=== PATIENT | female | born 1940 | race Caucasian/White ===

== ENCOUNTER 2017-10-17 20:48 | Emergency (ER) | payer OTHER ==
[2017-10-17] MEDS ORDERED: HYDROCODONE/APAP 5/325 MG TAB ONE (21:41)
--- NOTE | 2017-10-17 21:44 | ER ---
Nurse's Notes [facility] Name: Mary Hester Age: 77 yrs Sex: Female : 1940 Arrival Date: 10/17/2017 Time: 20:51 Bed 16 Private MD: Melissa Valdez F Diagnosis: Fractures distal left radius and ulna styloid Presentation: 10/17 20:57 Presenting complaint: Patient states: left wrist pain, deformity and swelling s/p trip ak1 and fall. Transition of care: patient was not received from another setting of care. Onset of symptoms was October 17, 2017. Risk Assessment: Do you want to hurt yourself or someone else? Patient reports no desire to harm self or others. Initial Sepsis Screen: Does the patient meet any 2 criteria? No. Patient's initial sepsis screen is negative. Does the patient have a suspected source of infection? No. Patient's initial sepsis screen is negative. Care prior to arrival: ice. 20:57 Method Of Arrival: Ambulatory ak1 20:57 Acuity: AGAPITO 3 ak1 Triage Assessment: 21:06 General: Appears in no apparent distress. Behavior is calm, cooperative. Pain: ak1 Complains of pain in dorsal aspect of left wrist and palmar aspect of left wrist. Historical: - Allergies: 20:59 No Known Allergies; ak1 - Home Meds: 21:06 amlodipine 10 mg tab 1 tab once daily [Active]; quinapril 20 mg Oral tab 1 tab once ak1 daily [Active]; pravastatin 40 mg oral tab 1 tab once daily [Active]; Synthroid 75 mcg Oral tab 1 tab once daily [Active]; Timolol Maleate Opht [Active]; cephalexin 250 mg Oral cap daily [Active]; - PMHx: 21:06 Hyperlipidemia; Hypertension; ak1 - PSHx: 20:59 Hysterectomy; colon; cataract; ak1 - Immunization history:: Adult Immunizations unknown. - Social history:: Smoking status: Patient/guardian denies using tobacco. - Ebola Screening: : No symptoms or risks identified at this time. Screenin:06 Abuse screen: Denies threats or abuse. Denies injuries from another. Nutritional ak1 screening: No deficits noted. Tuberculosis screening: No symptoms or risk factors identified. Fall Risk None identified. Assessment: 21:12 General: Appears in no apparent distress. uncomfortable, Behavior is calm, cooperative, bs1 appropriate for age. Pain: Complains of pain in left hand and palmar aspect of left wrist and dorsal aspect of left wrist. Neuro: Level of Consciousness is awake, alert, obeys commands, Oriented to person, place, time, situation, Appropriate for age. Cardiovascular: Denies chest pain, shortness of breath, Heart tones S1 S2 Capillary refill < 3 seconds Patient's skin is warm and dry. Respiratory: Airway is patent Trachea midline Respiratory effort is even, unlabored, Respiratory pattern is regular, symmetrical, Breath sounds are clear bilaterally. GI: No signs and/or symptoms were reported involving the gastrointestinal system. : No signs and/or symptoms were reported regarding the genitourinary system. EENT: No signs and/or symptoms were reported regarding the EENT system. Derm: Skin is intact. Musculoskeletal: Capillary refill < 3 seconds, Bony deformity noted of left hand and palmar aspect of left wrist and dorsal aspect of left wrist Swelling present in left hand and palmar aspect of left wrist and dorsal aspect of left wrist Reports pain in left hand and palmar aspect of left wrist and dorsal aspect of left wrist. 21:13 Reassessment: Patient currently has own ice pack on left hand/wrist from home. Elevated bs1 on blankets. 21:50 Reassessment: Dr Dawson, and JOSE Almanza at bedside for sugar tong splint. Patient bs1 tolerated. 22:05 Reassessment: S/p sugar tong splint, neurovascular cheks wnl. Called xray per Dr Dawson to bs1 bring copy of patients xray to take to orthopedic Dr. 22:24 Reassessment: xray CD given to patient. bs1 Vital Signs: 20:55 BP 170 / 72; Pulse 110; Resp 18; Temp 98; Pulse Ox 99% on R/A; Weight 65.77 kg (R); ak1 Height 5 ft. 4 in. (162.56 cm) (R); Pain 8/10; 21:45 BP 157 / 66; Pulse 88; Resp 15; Pulse Ox 99% on R/A; bs1 22:00 BP 110 / 83; Pulse 94; Resp 16; Temp 97.9(O); Pulse Ox 96% on R/A; Pain 5/10; bs1 22:25 BP 130 / 93; Pulse 88; Resp 16; Pulse Ox 99% on R/A; bs1 20:55 Body Mass Index 24.89 (65.77 kg, 162.56 cm) ak1 ED Course: 20:51 Patient arrived in ED. es 20:51 Melissa Valdez MD is Private Physician. es 20:58 Triage completed. ak1 20:59 Arm band placed on Patient placed in an exam room, on a stretcher, Patient notified of ak1 wait time. 21:08 Jaky Gurrola, RN is Primary Nurse. bs1 21:11 Albert Dawson MD is Attending Physician. pkl 21:11 Patient has correct armband on for positive identification. Bed in low position. Call bs1 light in reach. Side rails up X 1. Pulse ox on. NIBP on. Warm blanket given. 21:42 Rome Mclean MD is Referral Physician. pkl 21:45 XRAY Wrist LEFT 3 view In Process Unspecified. EDMS 22:03 Orthoglass splint: Sugar tong splint applied on left arm. Sling applied to left arm. oe 22:07 No provider procedures requiring assistance completed. Patient did not have IV access bs1 during this emergency room visit. Administered Medications: 21:40 Drug: [place] 5 mg-325 mg 1 tabs Route: PO; bs1 22:03 Follow up: Response: No adverse reaction bs1 Outcome: 21:43 Discharge ordered by . pkl 22:07 Discharged to home with family, with significant other. bs1 22:07 Condition: stable 22:07 Discharge instructions given to patient, Instructed on discharge instructions, follow up and referral plans. medication usage, Demonstrated understanding of instructions, follow-up care, medications, splint care, Prescriptions given X 1. 22:25 Patient left the ED. bs1 Signatures: Dispatcher [employer] EDMS Albert Dawson MD MD pkMimi Echevarria Amber RN RN ak1 Arcihe Velez oe Jaky Gurrola, RN RN bs1
--- NOTE | 2017-10-17 21:44 | EDPHYS ---
Physician Documentation [facility] Name: Mary Hester Age: 77 yrs Sex: Female : 1940 Arrival Date: 10/17/2017 Time: 20:51 Bed 16 Private MD: Melissa Valdez F ED Physician Albert Dawson HPI: 10/17 21:17 This 77 yrs old Female presents to ER via Ambulatory with complaints of Fall pkl Injury, Wrist Injury. 21:17 The patient or guardian reports injury, pain. The complaints affect the left wrist pkl diffusely. Context: resulted from a fall. Onset: The symptoms/episode began/occurred just prior to arrival. Associated signs and symptoms: The patient has no apparent associated signs or symptoms. Historical: - Allergies: 20:59 No Known Allergies; ak1 - Home Meds: 21:06 amlodipine 10 mg tab 1 tab once daily [Active]; quinapril 20 mg Oral tab 1 tab once ak1 daily [Active]; pravastatin 40 mg oral tab 1 tab once daily [Active]; Synthroid 75 mcg Oral tab 1 tab once daily [Active]; Timolol Maleate Opht [Active]; cephalexin 250 mg Oral cap daily [Active]; - PMHx: 21:06 Hyperlipidemia; Hypertension; ak1 - PSHx: 20:59 Hysterectomy; colon; cataract; ak1 - Immunization history:: Adult Immunizations unknown. - Social history:: Smoking status: Patient/guardian denies using tobacco. - Ebola Screening: : No symptoms or risks identified at this time. ROS: 21:17 Eyes: Negative for injury, pain, redness, and discharge, ENT: Negative for injury, pkl pain, and discharge, Neck: Negative for injury, pain, and swelling, Cardiovascular: Negative for chest pain, palpitations, and edema, Respiratory: Negative for shortness of breath, cough, wheezing, and pleuritic chest pain, Abdomen/GI: Negative for abdominal pain, nausea, vomiting, diarrhea, and constipation, Back: Negative for injury and pain, : Negative for injury, bleeding, discharge, and swelling, Skin: Negative for injury, rash, and discoloration, Neuro: Negative for headache, weakness, numbness, tingling, and seizure. 21:17 MS/extremity: Positive for injury or acute deformity, pain, of the left wrist. Exam: 21:17 Hand exam: Exam is positive for injury, pain, tenderness, left wrist. pkl 21:17 Skin: Exam negative for rash. 21:17 Head/Face: Normocephalic, atraumatic. Eyes: Pupils equal round and reactive to light, extra-ocular motions intact. Lids and lashes normal. Conjunctiva and sclera are non-icteric and not injected. Cornea within normal limits. Periorbital areas with no swelling, redness, or edema. ENT: Nares patent. No nasal discharge, no septal abnormalities noted. Tympanic membranes are normal and external auditory canals are clear. Oropharynx with no redness, swelling, or masses, exudates, or evidence of obstruction, uvula midline. Mucous membranes moist. Neck: Trachea midline, no thyromegaly or masses palpated, and no cervical lymphadenopathy. Supple, full range of motion without nuchal rigidity, or vertebral point tenderness. No Meningismus. Chest/axilla: Normal chest wall appearance and motion. Nontender with no deformity. No lesions are appreciated. Cardiovascular: Regular rate and rhythm with a normal S1 and S2. No gallops, murmurs, or rubs. Normal PMI, no JVD. No pulse deficits. Respiratory: Lungs have equal breath sounds bilaterally, clear to auscultation and percussion. No rales, rhonchi or wheezes noted. No increased work of breathing, no retractions or nasal flaring. Abdomen/GI: Soft, non-tender, with normal bowel sounds. No distension or tympany. No guarding or rebound. No evidence of tenderness throughout. Back: No spinal tenderness. No costovertebral tenderness. Full range of motion. Skin: Warm, dry with normal turgor. Normal color with no rashes, no lesions, and no evidence of cellulitis. Neuro: Awake and alert, GCS 15, oriented to person, place, time, and situation. Cranial nerves II-XII grossly intact. Motor strength 5/5 in all extremities. Sensory grossly intact. Cerebellar exam normal. Normal gait. Vital Signs: 20:55 BP 170 / 72; Pulse 110; Resp 18; Temp 98; Pulse Ox 99% on R/A; Weight 65.77 kg (R); ak1 Height 5 ft. 4 in. (162.56 cm) (R); Pain 8/10; 21:45 BP 157 / 66; Pulse 88; Resp 15; Pulse Ox 99% on R/A; bs1 22:00 BP 110 / 83; Pulse 94; Resp 16; Temp 97.9(O); Pulse Ox 96% on R/A; Pain 5/10; bs1 22:25 BP 130 / 93; Pulse 88; Resp 16; Pulse Ox 99% on R/A; bs1 20:55 Body Mass Index 24.89 (65.77 kg, 162.56 cm) ak1 Procedures: 21:41 Splinting: Splint applied to left wrist using sugar tong. applied by myself. Examined pkl by me, post splint application: neurovascular intact, 2+ distal pulses palpable, brisk capillary refill noted, Patient tolerated well. MDM: 21:11 Patient medically screened. pkl 21:41 Data reviewed: vital signs, nurses notes, radiologic studies, plain films. pkl 10/17 21:07 Order name: XRAY Wrist LEFT 3 view; Complete Time: 23:06 ak1 10/17 21:41 Order name: Splint - Sugar Tong - Forearm; Complete Time: 22:03 pkl 10/17 21:41 Order name: Sling; Complete Time: 22:03 pkl Administered Medications: 21:40 Drug: [place] 5 mg-325 mg 1 tabs Route: PO; bs1 22:03 Follow up: Response: No adverse reaction bs1 Disposition: 10/17/17 21:43 Discharged to Home. Impression: Fractures distal left radius and ulna styloid. - Condition is Stable. - Prescriptions for Tylenol- Codeine #3 300-30 mg Oral Tablet - take 1 tablet by ORAL route every 8 hours As needed; 30 tablet. - Medication Reconciliation Form, Thank You Letter, Antibiotic Education, Prescription Opioid Use form. - Follow up: Rome Mclean MD; When: 2 - 3 days; Reason: Re-evaluation by your physician. - Problem is new. - Symptoms have improved. Signatures: Dispatcher [employer] EDMS Albert Dawson MD MD pkl Torie Rajan RN RN ak1 Jaky Gurrola RN RN bs1 Corrections: (The following items were deleted from the chart) 22:25 21:43 10/17/2017 21:43 Discharged to Home. Impression: Fractures distal left radius and bs1 ulna styloid. Condition is Stable. Forms are Medication Reconciliation Form, Thank You Letter, Antibiotic Education, Prescription Opioid Use. Follow up: Dr. Rome Mclean; When: 2 - 3 days; Reason: Re-evaluation by your physician. Problem is new. Symptoms have improved. pkl
--- NOTE | 2017-10-17 21:53 | RAD REPORT ---
EXAM DESCRIPTION: RAD - Wrist Left 3 View - 10/17/2017 9:45 pm CLINICAL HISTORY: Fall, trauma, pain to wrist. COMPARISON: None. FINDINGS: Mildly impacted intra-articular fracture of the distal radius is seen. Small ulnar styloid avulsion is also present. Moderate soft tissue swelling about the wrist is seen.
== END 2017-10-17 22:25 | disposition home or self-care (01) ==
LOC: ER 20:48
PROC: 2W3DX1Z Immobilization of Left Lower Arm using Splint (ICD-10-PCS; principal; 2017-10-17)
DX: S52.502A Unspecified fracture of the lower end of left radius, initial encounter for closed fracture (principal); S52.615A Nondisplaced fracture of left ulna styloid process, initial encounter for closed fracture; E78.5 Hyperlipidemia, unspecified; I10 Essential (primary) hypertension; W19.XXXA Unspecified fall, initial encounter; Y92.019 Unspecified place in single-family (private) house as the place of occurrence of the external cause
CPT/HCPCS: 99284